=== PATIENT | female | born 1965 | race Caucasian/White ===

== ENCOUNTER 2020-06-02 11:50 | Observation (INO) | payer SELFPAY ==
[2020-06-02 12:32] LABS: Bilirubin Negative (Negative); Blood, Urine Negative (Negative); Clarity Clear (Clear); Glucose, Urine (Dipstick) Normal (Negative); Ketone, Urine Negative (Negative); Leukocyte Negative Leu/uL (Negative); Nitrite Negative (Negative); Protein, Urine (Dipstick) Negative (Neg-Trace); Specific Gravity, Urine 1.017 (1.002-1.036); Urobilinogen Normal mg/dL (Less than 2)
[2020-06-02] MEDS ORDERED: Aspirin Chewable 81 MG TAB ONE (12:58)
[2020-06-02] MEDS ORDERED: Lorazepam 2 MG/ML VIAL ONE (12:58)
[2020-06-02] MEDS ORDERED: Nitroglycerin 2% Ointment 1 INCH/1 GM Packet ONE (12:58)
[2020-06-02 13:08] LABS: #Lymphocytes 2.3 thou/uL (1.20-3.40); #Monocytes 0.6 thou/uL (0.11-0.59); #Neutrophils 3.5 thou/uL (1.40-6.50); %Basophils 0.5 % (0.0-1.0); %Eosinophils 0.1 % (0.0-10.0); %Lymphocytes 35.8 % (21.0-51.0); %Monocytes 8.7 % (0.0-10.0); %Neutrophils 54.9 % (42.0-75.0); Hemoglobin 12.3 g/dL (12.0-16.0); Mean Corpuscular HGB CONC 35.2 g/dL (32.0-36.0); Mean Corpuscular Hemoglobin 32.6 pg (27.0-31.0); Mean Corpuscular Volume 92.4 fL (78.0-98.0); Mean Platelet Volume 6.7 fL (7.4-10.4); Platelet Count 253 thou/uL (130-400); RBC Distribution Width 11.3 % (11.5-14.5); Red Blood Cell (RBC) Count 3.76 mill/uL (4.20-5.40); White Blood Cell (WBC) Count 6.3 thou/uL (4.8-10.8)
[2020-06-02 13:37] LABS: ALT (SGPT) 21 U/L (8-55); AST (SGOT) 24 U/L (5-34); Albumin 3.9 g/dL (3.5-5.0); Alkaline Phosphatase 90 U/L (40-110); Anion Gap 11 mmol/L (10-20); BUN (Urea Nitrogen) 11 mg/dL (9.8-20.1); Bilirubin, Total 0.4 mg/dL (0.2-1.2); Calc. Creatinine Clearance 0 mL/min (70-130); Calcium 8.9 mg/dL (7.8-10.44); Carbon Dioxide 22 mmol/L (22-29); Chloride 108 mmol/L (98-107); Globulin 3.3 g/dL (2.4-3.5); Glucose 115 mg/dL (70-105); Lipase 9 U/L (8-78); Potassium 3.5 mmol/L (3.5-5.1); Protein, Total 7.2 g/dL (6.0-8.3); Sodium 137 mmol/L (136-145)
[2020-06-02 16:09] LABS: Troponin I 0.029 ng/mL (< 0.028)
[2020-06-02 19:01] LABS: Troponin I 0.033 ng/mL (< 0.028)
[2020-06-02] MEDS ORDERED: Senokot S 8.6-50 MG TAB PO PRN (19:18)
[2020-06-02] MEDS ORDERED: Acetaminophen 325 MG TAB PO PRN (19:18)
[2020-06-02] MEDS ORDERED: Sodium Chloride 0.9% 1,000 ML IV SCH (19:30)
[2020-06-02] MEDS ORDERED: Melatonin 3 MG TAB PO PRN (19:59)
[2020-06-02 20:00] VITALS: BMI 25.0
[2020-06-02 20:00] LABS: ALT (SGPT) 23 U/L (8-55); AST (SGOT) 25 U/L (5-34); Albumin 3.8 g/dL (3.5-5.0); Alkaline Phosphatase 88 U/L (40-110); Anion Gap 14 mmol/L (10-20); BUN (Urea Nitrogen) 11 mg/dL (9.8-20.1); Bilirubin, Total 0.4 mg/dL (0.2-1.2); Calc. Creatinine Clearance 0 mL/min (70-130); Calcium 8.9 mg/dL (7.8-10.44); Carbon Dioxide 17 mmol/L (22-29); Chloride 111 mmol/L (98-107); Globulin 3.3 g/dL (2.4-3.5); Glucose 103 mg/dL (70-105); Potassium 3.7 mmol/L (3.5-5.1); Protein, Total 7.1 g/dL (6.0-8.3); Sodium 138 mmol/L (136-145)
[2020-06-02 20:01] LABS: Amphetamine Not Detected (NotDetected); Barbiturates Screen Not Detected (NotDetected); Benzodiazepine Screen Not Detected (NotDetected); Cocaine Metabolite Screen Not Detected (NotDetected); Medtox Control Line Valid? VALID (VALID); Medtox Reader # READER 1; Methadone Not Detected (NotDetected); Methamphetamine Not Detected (NotDetected); Opiate Screen Not Detected (NotDetected); Oxycodone Screen Not Detected (NotDetected); Phencyclidine (PCP) Not Detected (NotDetected); THC/Cannabinoid Screen Not Detected (NotDetected); Tricyclic Screen Not Detected (NotDetected)
[2020-06-02] MEDS ORDERED: clonazePAM 1 MG TAB PO SCH (21:00)
[2020-06-02] MEDS ORDERED: Venlafaxine HCl XR 150 MG CAP PO SCH (21:00)
[2020-06-02] MEDS: Topiramate 25 MG TAB PO SCH (21:20)
[2020-06-02] MEDS: busPIRone HCl 5 MG TAB PO SCH (21:20)
[2020-06-02] MEDS: Famotidine 20 MG TAB PO SCH (21:20)
[2020-06-02 21:37] LABS: Troponin I 0.045 ng/mL (< 0.028)
[2020-06-03 00:47] LABS: SARS-CoV-2 PCR by NAA Not Detected (NotDetected)
[2020-06-03] MEDS ORDERED: SYNTHROID PO SCH (06:00)
[2020-06-03 06:10] LABS: Hemoglobin 11.8 g/dL (12.0-16.0); Mean Corpuscular HGB CONC 34.3 g/dL (32.0-36.0); Mean Corpuscular Hemoglobin 31.9 pg (27.0-31.0); Mean Corpuscular Volume 92.9 fL (78.0-98.0); Mean Platelet Volume 8.1 fL (7.4-10.4); Platelet Count 161 thou/uL (130-400); RBC Distribution Width 11.4 % (11.5-14.5); Red Blood Cell (RBC) Count 3.71 mill/uL (4.20-5.40); White Blood Cell (WBC) Count 6.6 thou/uL (4.8-10.8)
[2020-06-03 06:30] LABS: Free T4 (Free Thyroxine) 1.05 ng/dL (0.70-1.48); Thyroid Stimulating Hormone 0.0875 uIU/mL (0.35-4.94)
[2020-06-03 07:53] LABS: Band 5 % (5-11); Lymphocytes 41 % (21-51); MDiff Complete? YES; Monocytes 1 % (0-10); Neutrophil 51 % (42-75); Platelet Morphology Comment Appears Adequate; RBC Morphology Normal; Reactive Lymphocytes 2 % (0-10)
[2020-06-03] MEDS: Famotidine 20 MG TAB PO SCH (08:51)
[2020-06-03] MEDS: busPIRone HCl 5 MG TAB PO SCH (08:51)
[2020-06-03] MEDS: Topiramate 25 MG TAB PO SCH (08:52)
[2020-06-03] MEDS ORDERED: Estradiol 1 MG TAB PO SCH (09:00)
[2020-06-03] MEDS ORDERED: Enoxaparin Sodium 40 MG/0.4 ML SYRINGE SC SCH (09:00)
[2020-06-03] MEDS ORDERED: Losartan 25 MG TAB PO SCH (09:00)
[2020-06-03] MEDS ORDERED: hydrOXYzine 25 MG TAB PO PRN (12:19)
[2020-06-03] MEDS ORDERED: Gabapentin 300 MG CAP PO SCH (13:00)
[2020-06-03 13:12] LABS: Troponin I 0.023 ng/mL (< 0.028)
[2020-06-03 16:56] VITALS: BP 141/66; TEMP 98
== END 2020-06-03 17:45 | disposition home or self-care (01) ==
LOC: ERS 11:50 → 2SW 17:03
PROVIDERS: ADMIT Family Medicine; ATTEND Hospitalist
DX: F13.239 Sedative, hypnotic or anxiolytic dependence with withdrawal, unspecified (principal); R07.89 Other chest pain; I10 Essential (primary) hypertension; E03.9 Hypothyroidism, unspecified; K21.9 Gastro-esophageal reflux disease without esophagitis; I08.2 Rheumatic disorders of both aortic and tricuspid valves; Z79.899 Other long term (current) drug therapy; Z88.1 Allergy status to other antibiotic agents; Z88.5 Allergy status to narcotic agent; Z88.8 Allergy status to other drugs, medicaments and biological substances; Z20.822 Contact with and (suspected) exposure to COVID-19
CPT/HCPCS: 36415; 71045; 80053; 80306; 81003; 83690; 83735; 84439; 84443; 84481; 84484; 85025; 87635; 93005; 93306; 96372; 96374; G0378; J1650; J2060; U0003; U0005

== ENCOUNTER 2020-06-12 15:58 | Emergency (ER) | payer SELFPAY ==
[2020-06-12] MEDS ORDERED: Ketorolac Tromethamine 30 MG/ML VIAL ONE (17:08)
[2020-06-12] MEDS ORDERED: Diazepam 5 MG TAB ONE (17:10)
== END 2020-06-12 17:58 | disposition home or self-care (01) ==
LOC: ERS 15:58
DX: S30.0XXA Contusion of lower back and pelvis, initial encounter (principal); E03.9 Hypothyroidism, unspecified; K21.9 Gastro-esophageal reflux disease without esophagitis; I10 Essential (primary) hypertension; Z79.899 Other long term (current) drug therapy; W01.198A Fall on same level from slipping, tripping and stumbling with subsequent striking against other object, initial encounter
CPT/HCPCS: 72072; 72100; 96372; J1885